=== PATIENT | female | born 1965 | race Caucasian/White ===

== ENCOUNTER → 2018-11-10 | Outpatient (CLI) | payer OTHER ==
[2018-11-10 08:49] LABS: Source, Urine Clean Catch
[2018-11-10 09:20] LABS: Red Blood Cells, Urine Rare /hpf (0-2); White Blood Cells, Urine 0-2 /hpf (0-5)
[2018-11-10 09:21] LABS: Bacteria Not Seen /hpf; Mucus Mod (0-Heavy); Squamous Epithelial Cells Few /hpf (Few)
[2018-11-10 09:22] LABS: Renal Epithelial Few /hpf (0-Rare); Transitional Epithelial Cells Few /hpf (0-Rare)
== END | disposition home or self-care (01) ==
LOC: LAB EV 08:46 → LAB SHORT 08:46
PROVIDERS: Physician Assistant
DX: M54.5 Low back pain (principal)
CPT/HCPCS: 81015

== ENCOUNTER 2024-06-27 09:27 | Day surgery (SDC) | payer OTHER ==
[~2024-06-27] VITALS: Ht 175.3 cm; Wt 63.2 kg
[~2024-06-27 09:27] MED LIST: Lactated Ringer's 1,000 ML IV ONE; propofoL 40 ML IV ONE
[2024-06-27] MEDS ORDERED: SUMA25 (10:45)
[2024-06-27] MEDS ORDERED: Lactated Ringer's 1,000 ML IV ONE (10:45)
[2024-06-27] MEDS ORDERED: Ondansetron HCl 2 MG / ML 2ML Vial ONE (11:10)
[2024-06-27] MEDS ORDERED: propofoL 20 ML IV ONE (11:32)
[2024-06-27 12:05] VITALS: BP 109/69
== END 2024-06-27 12:16 | disposition home or self-care (01) ==
LOC: ORSCSDS 09:27
PROVIDERS: Surgery
PROC: 0DJD8ZZ Inspection of Lower Intestinal Tract, Via Natural or Artificial Opening Endoscopic (ICD-10-PCS; principal; 2024-06-27 11:00)
DX: Z12.11 Encounter for screening for malignant neoplasm of colon (principal); E78.5 Hyperlipidemia, unspecified; Z79.899 Other long term (current) drug therapy
CPT/HCPCS: J2405; J2704; J7120